=== PATIENT | female | born 1950 | race Caucasian/White ===

== ENCOUNTER 2022-10-11 10:41 | Emergency (ER) | payer OTHER ==
--- OUTSIDE RECORDS SUMMARY | 2022-10-11 10:46 | XMS REPORT | Continuity of Care Document ---
:1950 Author Organization [facility] t Address [address] [place] [address] [address] [place] [address] Care Team Providers Name Role Phone Unavailable Unavailable Unavailable Problems This patient has no known problems. Allergies, Adverse Reactions, Alerts This patient has no known allergies or adverse reactions. Medications This patient has no known medications. Procedures This patient has no known procedures. Results This patient has no known results.
[2022-10-11] MEDS ORDERED: ACETAMINOPHEN 500 MG TAB ONE (11:08)
[2022-10-11] MEDS ORDERED: IBUPROFEN 400 MG TAB ONE (11:08)
[2022-10-11] MEDS ORDERED: NA CHLORIDE 0.9% 1,000 ML ONE (11:08)
[2022-10-11] MEDS ORDERED: ONDANSETRON 4 MG/2 ML VIAL ONE (11:21)
--- NOTE | 2022-10-11 11:38 | RAD REPORT ---
EXAM DESCRIPTION: RAD - Chest Single View - 10/11/2022 11:32 am CLINICAL HISTORY: CONGESTION Chest pain. COMPARISON: No comparisons FINDINGS: Portable technique limits examination quality. The lungs are grossly clear. The heart is normal in size. No displaced fractures. IMPRESSION: No acute intrathoracic process suspected.
[2022-10-11 11:56] LABS: Absolute Lymphocytes (CBC) 0.8 K/uL (0.7-4.9); Hematocrit 37.6 % (36.0-45.0); Lymphocytes % 13.3 % (15.3-44.8); MCV 95.1 fL (80-100); MPV 6.7 fL (7.6-11.3); RBC Red Blood Cell Count 3.95 M/uL (3.86-4.86)
[2022-10-11 12:14] LABS: Albumin 3.4 g/dL (3.4-5.0); Bilirubin Total 0.2 mg/dL (0.2-1.0); Potassium 3.4 mmol/L (3.5-5.1); Protein, Total 6.8 g/dL (6.4-8.2)
[2022-10-11 12:33] LABS: SARS-COV-2 RT PCR POSITIVE (NEGATIVE)
[2022-10-11 12:44] LABS: Urine Blood Trace-intact (Negative); Urine Glucose Negative (Negative); Urine Protein 2+ (Negative); Urine Specific Gravity >=1.030 (1.005-1.030); Urine pH 5.5 (5.0-7.0)
[2022-10-11 12:52] LABS: Specific Gravity 1.025 (1.005-1.030); Urine Bacteria None Seen /HPF (<20); Urine Bilirubin NEGATIVE (Negative); Urine Blood Negative (Negative); Urine Clarity Turbid (Clear); Urine Color Yellow (Yellow); Urine Glucose NEGATIVE (Negative); Urine Mucus 2+ /HPF (None Seen); Urine Protein 1+ (Negative); Urine RBC <5 /HPF (None Seen); Urine Urobilinogen Normal (Normal); Urine pH 5.5 (5.0-7.0)
--- NOTE | 2022-10-11 13:06 | EDPHYS ---
Physician Documentation [facility] Name: Fatou Bond Age: 71 yrs Sex: Female : 1950 Arrival Date: 10/11/2022 Time: 10:45 Bed 8 Private MD: ED Physician Ishmael Márquez HPI: 10/11 11:04 This 71 yrs old Female presents to ER via Unassigned with complaints of Nausea, jr11 Headache, Diarrhea, feeling unwell. 11:04 The patient presents to the emergency department with nausea, that is moderate, jr11 vomiting, diarrhea, 2 soft stools . Onset: The symptoms/episode began/occurred yesterday. Possible causes: unknown. The symptoms are aggravated by nothing. The symptoms are alleviated by OTC meds. Associated signs and symptoms: Pertinent positives: diarrhea, nausea. Severity of symptoms: At their worst the symptoms were moderate in the emergency department the symptoms are unchanged. Pt feeling unwell, thinks perhaps has flu, denies worsening MODI, no MODI right now, no AMS . Historical: - Allergies: 11:05 Codeine; kc6 - Home Meds: 11:05 Dilantin Oral [Active]; Prozac Oral [Active]; kc6 - PMHx: 11:05 Hypertensive disorder; encephalitis; kc6 - PSHx: 11:05 Tonsillectomy; kc6 - Immunization history:: Client reports receiving the 2nd dose of the Covid vaccine, Flu vaccine is not up to date. - Social history:: Smoking status: Patient denies any tobacco usage or history of. ROS: 11:04 All other systems are negative. jr11 Exam: 11:04 Constitutional: This is a well developed, well nourished patient who is awake, alert, jr11 and in no acute distress. Head/Face: Normocephalic, atraumatic. Eyes: Extra-ocular motions intact. Lids and lashes normal. Conjunctiva and sclera are non-icteric and not injected. Cornea within normal limits. Periorbital areas with no swelling, redness, or edema. ENT: dry mm Neck: Trachea midline, no thyromegaly or masses palpated, and no cervical lymphadenopathy. Supple, full range of motion without nuchal rigidity, or vertebral point tenderness. No Meningismus. Chest/axilla: Normal chest wall appearance and motion. Nontender with no deformity. No lesions are appreciated. Cardiovascular: tachy, regular Abdomen/GI: Soft, non-tender, with normal bowel sounds. No distension or tympany. No guarding or rebound. No evidence of tenderness throughout. Back: No spinal tenderness. No costovertebral tenderness. Full range of motion. Skin: Warm, dry with normal turgor. Normal color with no rashes, no lesions, and no evidence of cellulitis. MS/ Extremity: Pulses equal, no cyanosis. Neurovascular intact. Full, normal range of motion. Vital Signs: 11:04 BP 150 / 83; Pulse 98; Resp 18 S; Temp 98.4(O); Pulse Ox 95% on R/A; Weight 44.45 kg kc6 (R); Height 5 ft. 2 in. (157.48 cm) (R); Pain 0/10; 12:09 BP 123 / 78; Pulse 76; Resp 14 S; Pulse Ox 100% on R/A; kc6 13:21 BP 123 / 78; Pulse 76; Resp 14 S; Pulse Ox 100% on R/A; hb 11:04 Body Mass Index 17.92 (44.45 kg, 157.48 cm) kc6 MDM: 11:01 Patient medically screened. 11 11:04 Differential diagnosis: viral gastroenteritis, viral syndrome. Data reviewed: [facility] signs, nurses notes. 11:11 ED course: Pt is well appearing, concerned about possible flu. Pt has a h/o viral jr11 encephalitis and was concerned due to nausea. No MODI, no over F/C, doubt re-occurrence. . 10/11 11:03 Order name: COVID-19/FLU A+B/RSV; Complete Time: 12:38 [facility] 10/11 11:03 Order name: CBC with Diff; Complete Time: 11:57 [facility] 10/11 11:03 Order name: CMP; Complete Time: 12:38 [facility] 10/11 12:44 Order name: Urine Dipstick-Ancillary; Complete Time: 12:54 EDMS 10/11 11:03 Order name: IV Saline Lock; Complete Time: 11:47 [facility] 10/11 11:03 Order name: Labs collected and sent; Complete Time: 11:47 [facility] 10/11 11:03 Order name: XRAY CXR (1 view); Complete Time: 11:45 [facility] 10/11 12:47 Order name: Urinalysis W/Microscopic; Complete Time: 12:54 EDMS 10/11 11:26 Order name: Urine Dipstick-Ancillary (obtain specimen); Complete Time: 12:43 kc6 Administered Medications: 11:10 Drug: Ibuprofen 400 mg Route: PO; vg1 12:33 Follow up: Response: No adverse reaction kc6 11:10 Drug: Tylenol 1000 mg Route: PO; vg1 12:33 Follow up: Response: No adverse reaction kc6 11:42 Drug: NS 0.9% 1000 ml Route: IV; Rate: 1 bolus; Site: left antecubital; vg1 12:42 Follow up: Response: No adverse reaction; IV Status: Completed infusion; IV Intake: kc6 1000ml 11:42 Drug: Zofran (Ondansetron) 4 mg Route: IVP; Site: left antecubital; vg1 12:33 Follow up: Response: No adverse reaction kc6 Disposition Summary: 10/11/22 13:05 Discharge Ordered Location: Home rt Problem: new rt Symptoms: are unchanged rt Condition: Stable rt Diagnosis - Covid rt Followup: rt - With: Private Physician - When: 5 - 6 days - Reason: Discharge Instructions: - Discharge Summary Sheet rt - COVID-19 rt - COVID-19 Frequently Asked Questions rt Forms: - Medication Reconciliation Form rt - Thank You Letter rt - Antibiotic Education rt - Prescription Opioid Use rt Signatures: Dispatcher [employer] Johanna Martinez RN RN vg1 Jem Kramer MD MD jr11 Lorri Ramos RN RN kc6 Ishmael Márquez MD MD rt Corrections: (The following items were deleted from the chart) 12: 11:04 URINALYSIS+U.LAB.BRZ ordered. EDMS EDMS 12:47 11:04 UA MICROSCOPIC+U.LAB.BRZ ordered. EDMS EDMS
--- NOTE | 2022-10-11 13:06 | ER ---
Nurse's Notes [facility] Name: Fatou Bond Age: 71 yrs Sex: Female : 1950 Arrival Date: 10/11/2022 Time: 10:45 Bed 8 Private MD: Diagnosis: Covid Presentation: 10/11 11:04 Chief complaint: Patient states: she has been feeling under the weather since kc6 yesterday. reports nausea, diarrhea and headache. Coronavirus screen: Vaccine status: Patient reports receiving the 2nd dose of the covid vaccine. At this time, the client does not indicate any symptoms associated with coronavirus-19. Ebola Screen: No symptoms or risks identified at this time. Initial Sepsis Screen: Does the patient meet any 2 criteria? No. Patient's initial sepsis screen is negative. Does the patient have a suspected source of infection? No. Patient's initial sepsis screen is negative. Risk Assessment: Do you want to hurt yourself or someone else? Patient reports no desire to harm self or others. Onset of symptoms was October 10, 2022. 11:04 Method Of Arrival: Ambulatory [facility] 11:04 Acuity: HETAL 3 kc6 Triage Assessment: 11:07 General: Appears in no apparent distress. comfortable, Behavior is calm, cooperative, kc6 appropriate for age. Pain: Denies pain. EENT: Reports nasal congestion. Neuro: Garzon Agitation-Sedation Scale (RASS): 0 - Alert and Calm Level of Consciousness is awake, alert, obeys commands, Oriented to person, place, time, situation, Appropriate for age. Cardiovascular: Heart tones S1 S2 present Capillary refill < 3 seconds. Respiratory: Reports cough that is Airway is patent Trachea midline Respiratory effort is even, unlabored, Respiratory pattern is regular, symmetrical, Breath sounds are clear bilaterally. GI: Abdomen is flat, non-distended, Bowel sounds present X 4 quads. Abd is soft and non tender X 4 quads. Reports diarrhea, nausea, Patient currently denies abdominal pain, vomiting. : No signs and/or symptoms were reported regarding the genitourinary system. Derm: No signs and/or symptoms reported regarding the dermatologic system. Skin is intact, Skin is pink, warm \T\ dry. Musculoskeletal: No signs and/or symptoms reported regarding the musculoskeletal system. Circulation, motion, and sensation intact. Capillary refill < 3 seconds, Range of motion: intact in all extremities. Historical: - Allergies: 11:05 Codeine; kc6 - Home Meds: 11:05 Dilantin Oral [Active]; Prozac Oral [Active]; kc6 - PMHx: 11:05 Hypertensive disorder; encephalitis; kc6 - PSHx: 11:05 Tonsillectomy; kc6 - Immunization history:: Client reports receiving the 2nd dose of the Covid vaccine, Flu vaccine is not up to date. - Social history:: Smoking status: Patient denies any tobacco usage or history of. Screenin:09 [facility] ED Fall Risk Assessment (Adult) History of falling in the last 3 months, kc6 including since admission No falls in past 3 months (0 pts) Confusion or Disorientation No (0 pts) Intoxicated or Sedated No (0 pts) Impaired Gait No (0 pts) Mobility Assist Device Used No (0 pt) Altered Elimination No (0 pt) Score/Fall Risk Level 0 - 2 = Low Risk. Abuse screen: Denies threats or abuse. Denies injuries from another. Nutritional screening: No deficits noted. Tuberculosis screening: No symptoms or risk factors identified. Assessment: 11:09 Reassessment: please see triage assessment. GI: Abdomen is flat, non-distended, Bowel kc6 sounds present X 4 quads. Abd is soft and non tender X 4 quads. Reports diarrhea, nausea, Patient currently denies abdominal pain, vomiting. 12:09 Reassessment: Patient appears in no apparent distress at this time. No changes from kc6 previously documented assessment. Patient and/or family updated on plan of care and expected duration. Pain level reassessed. Patient is alert, oriented x 3, equal unlabored respirations, skin warm/dry/pink. 13:09 Reassessment: Patient appears in no apparent distress at this time. No changes from hb previously documented assessment. Patient and/or family updated on plan of care and expected duration. Pain level reassessed. Patient is alert, oriented x 3, equal unlabored respirations, skin warm/dry/pink. Vital Signs: 11:04 BP 150 / 83; Pulse 98; Resp 18 S; Temp 98.4(O); Pulse Ox 95% on R/A; Weight 44.45 kg kc6 (R); Height 5 ft. 2 in. (157.48 cm) (R); Pain 0/10; 12:09 BP 123 / 78; Pulse 76; Resp 14 S; Pulse Ox 100% on R/A; kc6 13:21 BP 123 / 78; Pulse 76; Resp 14 S; Pulse Ox 100% on R/A; hb 11:04 Body Mass Index 17.92 (44.45 kg, 157.48 cm) kc6 ED Course: 10:45 Patient arrived in ED. mr 10:50 Jem Kramer MD is Attending Physician. jr11 11:05 Triage completed. kc6 11:10 Lorri Ramos, MEMO is Primary Nurse. kc6 11:10 Arm band placed on. kc6 11:10 Patient has correct armband on for positive identification. Placed in gown. Bed in low kc6 position. Call light in reach. Side rails up X 1. 11:26 COVID-19/FLU A+B/RSV Sent. kc6 11:26 Missed attempt(s): 20 gauge in right antecubital area. Missed attempt(s): 20 gauge in kc6 left antecubital area. 11:32 Missed attempt(s): 22 gauge in right antecubital area. vg1 11:34 XRAY CXR (1 view) In Process Unspecified. EDMS 11:40 Initial lab(s) drawn, by me, sent to lab. Inserted saline lock: 22 gauge in left vg1 antecubital area, using aseptic technique. 11:47 CBC with Diff Sent. kc6 11:47 CMP Sent. kc6 11:57 Attending Physician role handed off by Jem Kramer MD rt 11:57 Ishmael Márquez MD is Attending Physician. rt 13:20 No provider procedures requiring assistance completed. IV discontinued, intact, hb bleeding controlled, No redness/swelling at site. Pressure dressing applied. Administered Medications: 11:10 Drug: Ibuprofen 400 mg Route: PO; vg1 12:33 Follow up: Response: No adverse reaction kc6 11:10 Drug: Tylenol 1000 mg Route: PO; vg1 12:33 Follow up: Response: No adverse reaction kc6 11:42 Drug: NS 0.9% 1000 ml Route: IV; Rate: 1 bolus; Site: left antecubital; vg1 12:42 Follow up: Response: No adverse reaction; IV Status: Completed infusion; IV Intake: kc6 1000ml 11:42 Drug: Zofran (Ondansetron) 4 mg Route: IVP; Site: left antecubital; vg1 12:33 Follow up: Response: No adverse reaction kc6 Medication: 13:21 VIS not applicable for this client. hb Intake: 12:42 IV: 1000ml; Total: 1000ml. kc6 Outcome: 13:05 Discharge ordered by MD. rt 13:20 Discharged to home ambulatory. hb 13:20 Condition: stable 13:20 Discharge instructions given to patient, Instructed on discharge instructions, Demonstrated understanding of instructions. 13:22 Patient left the ED. hb Signatures: Dispatcher [employer] EDMS Clare López mr Leslee Cardenas, RN RN aa5 Laura Coto RN RN hb Johanna Bond RN RN vg1 Jem Kramer MD MD jr11 Lorri aRmos RN RN kc6 Ishmael Márquez MD MD rt Corrections: (The following items were deleted from the chart) 11:10 10:52 Leslee Cardenas, RN is Primary Nurse. aa5 aa5 12:47 12:43 UA MICROSCOPIC+U.LAB.BRZ drawn and sent. kc6 EDMS 12:47 12:43 URINALYSIS+U.LAB.BRZ drawn and sent. kc6 EDMS
[2022-10-11 13:39] VITALS: TEMP 98.4
[2022-10-11 13:45] VITALS: BP 123/78; O2SAT 100
== END 2022-10-11 13:22 | disposition home or self-care (01) ==
LOC: ER 10:41
DX: U07.1 COVID-19 (principal); I10 Essential (primary) hypertension; Z88.5 Allergy status to narcotic agent
CPT/HCPCS: 96361; 85025; 81001; 36415; 81003; 80053; 0241U; 71045; 96374; 99284; J7030; J2405